=== PATIENT | female | born 1965 | race Caucasian/White ===

== ENCOUNTER 2019-05-27 18:20 | Emergency (ER) | payer OTHER, SELFPAY ==
[2019-05-27 18:21] VITALS: BP 132/82; PULSE 81; PULSE 84; RESP 17; TEMP 36.6; O2SAT 98; BMI 29.6
[2019-05-27] MEDS: morphine 8 MG/ML Syringe IV (18:41)
[2019-05-27] MEDS: Ondansetron 4 MG/2 ML Vial IV (18:41)
--- NOTE | 2019-05-27 18:56 | RAD_ITS ---
STUDY: X-RAY - LEFT WRIST REASON FOR EXAM: Female, 53 years old. fall from ladder. left wrist pain. no previous injury. TECHNIQUE: 3 view(s) of the wrist were obtained. COMPARISON: None. FINDINGS: An acute comminuted displaced impaction fracture of the distal radial metaphysis and articular surface is present. The distal fracture fragment is dorsally displaced by several centimeters while maintaining articulation with the carpus. The surrounding soft tissues are swollen and deformed. No additional fractures are visualized on this. RAD/Wrist min 3 Views IMPRESSION: Acute comminuted displaced fracture of the distal radius articular surface and metaphysis Electronically Signed: Cornel Murrell MD at 19:23 EST , Service support ,
[2019-05-27] MEDS: Morphine 4 MG/ML Syringe IV (19:57)
--- NOTE | 2019-05-27 21:04 | RAD_ITS ---
STUDY: X-RAY - LEFT WRIST REASON FOR EXAM: Female, 53 years old. LEFT WRIST POST REDUCTION TECHNIQUE: 3 view(s) of the wrist were obtained. COMPARISON: May 27, 2019 FINDINGS: Previously displaced distal radial fracture has been reduced with improved alignment. Splinter cast material is also in place. There is limited visualization of the remaining structures due to the newly placed splint material. RAD/Wrist min 3 Views IMPRESSION: Status post reduction of the distal radial fracture Electronically Signed: Cornel Murrell MD at 21:39 EST , Service support ,
--- NOTE | 2019-05-27 21:30 | ED.VIS.UPPEX ---
History of Present Illness Chief Complaint: Upper Extremity Injury Narrative: Patient presenting for evaluation secondary to an upper extremity injury. Patient was on a ladder. She states that the ladder started to slide out, she rode the ladder all the way to the ground, and then fell on a left outstretched hand. She denies hitting her head or loss of consciousness. She has deformity to the left wrist. There is moderate to severe pain with movement or palpation. No numbness or weakness. Patient is not in any sort of anticoagulants. Review of systems otherwise negative. Past Medical History - Allergies and Home Meds Allergies/Adverse Reactions: Allergies No Known Allergies Allergy (Verified 05/27/19 18:20) Primary Care Physician: Care Physician,No Primary [Primary Care Provider] - Past Medical History: None Smoking Status: Never smoker Review of Systems All systems negative except as indicated General: Denies: Chills, Fever, Sweats Eyes: Denies: Visual changes - bilaterally, Diplopia ENT: Denies: Rhinorrhea, Sore throat Cardiovascular: Denies: Chest pain, Palpitations Respiratory: Denies: Dyspnea, Cough, Dyspnea on exertion Gastrointestinal: Denies: Abdominal pain, Nausea, Vomiting, Diarrhea, Melena, Hematochezia Genitourinary: Denies: Dysuria, Hematuria, Frequency Musculoskeletal: Reports: Extremity Pain Skin: Denies: Rash, Wounds Neurological: Denies: Headache, Weakness, Numbness Psych: Denies: Depression Endocrine: Denies: Polyuria Hematologic: Denies: Easy bruising, Easy bleeding Allergy: Denies: Swelling of the mouth Physical Exam Vital Signs/Narrative: Vital Signs Temp Pulse Resp BP Pulse Ox 05/27/19 18:21 97.9 F 84 17 132/82 H 98 Left Wrist: - - Examination of the patient's left upper extremity shows no pain of the shoulder elbow or forearm. Patient's wrist shows obvious deformity. Normal sensation and capillary refill of all 5 fingers. Limited range of motion secondary to pain. General: Well nourished, Well developed, - - Airway patent, breath sounds equal bilateral, central peripheral pulses 2+ and symmetric. GCS 15 out of 15 Head: Normocephalic, Atraumatic Eyes: Perrl, EOMI ENT: No Trauma, Moist Mucous Membranes Neck: Nontender, Full ROM Cardiovascular: Regular rate, Regular rhythm, No murmurs Respiratory: No distress, CTA bilaterally, Chest nontender Abdomen: Soft, Nontender, Nondistended, Normal bowel sounds Back: Nontender Skin: Normal color, No rash Neurological: Alert, Oriented x3, Cranial nerves II-XII grossly intact, Normal Strength, Normal Sensation Psychological: Normal affect Diagnostic/Tx/Re-eval - Medical Decision Making Patient presented secondary to a fall. There is obvious deformity of the wrist. Patient was given morphine and Zofran for treatment of pain. 3 view of the wrist shows fracture dislocation of the radius and ulna. I discussed patient's case with orthopedics Dr. Rapp. Who feels the patient to be appropriate to have a emergency department reduction and a referral to a hand specialist. Patient's fracture was anesthetized via a hematoma block as noted in the procedure note. Reduction was performed as also noted in the procedure note. Post reduction films, 3 views by my personal review show improvement of the patient's alignment. Patient will be referred to orthopedic hand. She will be sent home with a course of Percocet. Procedures Procedure(s): 1.Hematoma Block:Patient's dorsum of her wrist was cleansed with chlorhexidine x2. Area of the fracture was localized by palpation. 22-gauge needle was entered into the skin, hematoma was aspirated, and 10 cc of bupivacaine was injected into the patient's hematoma. 2. Closed Reduction: Patient was placed in the finger traps, and weights were added and the patient was allowed to sit for approximately 45 minutes to an hour. There was some improvement in the patient's alignment. Patient's wrist was then manipulated via traction, recreation of the injury, and reduction. Reasonably good reduction was obtained. 3. A/P Short arm fabricated splint: Patient was then placed in a plaster splint that was formed by the ED physician. Anterior posterior plaster was placed, and a mold was held until the plaster was tolerated. Patient had good capillary refill following mold placement. ED Disposition - Plan for ED Patient: Disposition: Home or Assisted Living Diagnosis: Wrist fracture Instructions: RADIUS AND ULNA FX, Reduction Required Prescriptions: Oxycodone HCl/Acetaminophen [Percocet 5/325] 1 tab PO Q6H PRN PRN 5 Days #20 tab PRN Reason: Pain Score 6-10/10 Prescription Printed Additional Instructions: Dr. Victor Manuel Albarran [address]
[2019-05-27 22:13] VITALS: BP 125/70; PULSE 87; RESP 16; O2SAT 98
== END 2019-05-27 22:16 | disposition home or self-care (01) ==
PROVIDERS: Emergency Provider Emergency Medicine
DX: S52.502A Unspecified fracture of the lower end of left radius, initial encounter for closed fracture (principal); S52.602A Unspecified fracture of lower end of left ulna, initial encounter for closed fracture; W11.XXXA Fall on and from ladder, initial encounter; Y93.9 Activity, unspecified; Y92.9 Unspecified place or not applicable; Y99.9 Unspecified external cause status
CPT/HCPCS: 25605; 29125; 73110; 96374; 96375; 96376; 99282; A4216; J2405

== ENCOUNTER 2021-10-13 15:13 | Outpatient (RCR) | payer SELFPAY | END 2021-10-13 19:00 | disposition home or self-care (01) | LOC: PT 15:13 | DX: Z00.00 Encounter for general adult medical examination without abnormal findings (principal) ==

== ENCOUNTER → 2022-08-18 | Outpatient (CLI) | payer BC, SELFPAY ==
[2022-08-18 09:42] LABS: Absolute Lymphocyte Count 1.34 X10^3/uL (0.83-4.51); Basophil# 0.04 X10^3/uL; Basophil% 1.1 % (0-1); Eosinophil# 0.09 X10^3/uL; Eosinophils% 2.4 % (0-5); Hematocrit 40.9 % (37-47); Hemoglobin 13.3 g/dL (12.0-15.0); Lymphocyte # 1.34 X10^3/ul (0.83-4.51); Lymphocyte % 35.9 % (19-41); Mean Corp Hgb Conc 32.5 g/dL (32-36); Mean Corpuscular Hgb 29.9 pg (27.0-32.0); Mean Corpuscular Volume 91.9 fL (81-99); Mean Platelet Vol. 10.8 fl (6.2-12.0); NRBC Flagged by Analyzer 0 % (0-5); Neutrophil # 1.95 X10^3/uL (2.7-7.7); Neutrophil % 52.3 % (47-70); Platelet Count 303 K/mm3 (150-450); RBC Distribution Width CV 12.5 % (11.6-14.6); Red Blood Count 4.45 M/mm3 (4.2-5.4); White Blood Count 3.7 K/mm3 (4.4-11.0)
[2022-08-18 10:08] LABS: Vitamin D,25 Hydroxy 53.1 ng/mL
[2022-08-18 10:11] LABS: ALB/GLOB Ratio 1.1 RATIO (0.9-2.4); AST(SGOT) 20 U/L (15-37); Alanine Aminotransfer ALT/SGPT 23 U/L (13-56); Albumin, Serum 3.7 g/dL (3.2-5.0); Alkaline Phosphatase 88 U/L (45-117); Anion Gap 4 (5-15); BUN 12 mg/dL (7-18); BUN/Creat Ratio 13.7 RATIO (10-20); Calcium,Total 8.9 mg/dL (8.5-10.1); Chloride 112 mmol/L (98-107); Cholesterol 280 mg/dL (200); Creatinine, Serum 0.88 mg/dL (0.55-1.02); EST Glomerular Filtration Rate 70 mL/min (>60); Est Glom Filt Rate - Afr Amer 85 mL/min (>60); Ferritin 133 ng/mL (8-252); Globulin 3.3 g/dL (2.2-4.2); Glucose 119 mg/dL (74-106); High Density Lipoprotein 63 mg/dL; Iron 64 ug/dL (50-170); Iron Binding Capacity,Total 338 ug/dL (250-450); PERCENT IRON SATURATION 18.9 % (15.0-55.0); Potassium 4.3 mmol/L (3.5-5.1); Sodium Level 144 mmol/L (136-145); Triglycerides 74 mg/dL; Very Low Density Lipoprotein 15 mg/dL (5-40)
== END | disposition home or self-care (01) ==
DX: R03.0 Elevated blood-pressure reading, without diagnosis of hypertension (principal); E44.1 Mild protein-calorie malnutrition; E55.9 Vitamin D deficiency, unspecified; R53.83 Other fatigue; E78.5 Hyperlipidemia, unspecified
CPT/HCPCS: 36415; 80053; 80061; 82306; 82728; 83540; 83550; 85025